=== PATIENT | male | born 1965 | race Caucasian/White ===

== ENCOUNTER 2019-12-14 07:51 | Day surgery (SDC) | payer OTHER ==
[2019-12-08 14:28] VITALS: BMI 24.2
--- OUTSIDE RECORDS SUMMARY | 2019-12-14 07:55 | XMS ---
:1965 Author Organization [facility] Care Team Providers Name Role Phone LOGAN LOPEZ Unavailable Unavailable Re-disclosure Warning The records that you are about to access may contain information from federally- assisted alcohol or drug abuse programs. If such information is present, then the following federally mandated warning applies: This information has been disclosed to you from records protected by federal confidentiality rules (42 CFR part 2). The federal rules prohibit you from making any further disclosure of this information unless further disclosure is expressly permitted by the written consent of the person to whom it pertains or as otherwise permitted by 42 CFR part 2. A general authorization for the release of medical or other information is NOT sufficient for this purpose. The Federal rules restrict any use of the information to criminally investigate or prosecute any alcohol or drug abuse patient.The records that you are about to access may contain highly sensitive health information, the redisclosure of which is protected by Article 27-F of the [facility] Public Health law. If you continue you may haveaccess to information: Regarding HIV / AIDS; Provided by facilities licensed or operated by the [facility] Office of Mental Health; or Provided by the [facility] Office for People With Developmental Disabilities. If such information is present, then the following [facility] mandated warning applies: This information has been disclosed to you from confidential records which are protected by state law. State law prohibits you from making any further disclosure of this information without the specific written consent of the person to whom it pertains, or as otherwise permitted by law. Any unauthorized further disclosure in violation of state law may result in a fine or group home sentence or both. A general authorization for the release of medical or other information is NOT sufficient authorization for further disclosure. Encounters Encounter Providers Location Date Indications Data Source(s ) Inpatient Attender: 03/17/2018 ACUTE CHOLECYSTITIS [facility], 09:40:00 AM Health Care RICHARDTIRIYAdmitter: EST - Corporati on [facility], 03/19/2018 LOGAN 11:30:00 AM EST ACUTE CHOLECYSTITIS Medications Medication Brand Start Product Dose Route Administrative Pharmacy [facility] Indications Reaction Description Data Name Date Form Instructions Instructions Source(s) Acetaminoph 985260 complet [place] [facility]ste en [500 mg [address] [facility] Tablet]: 2 Health Tablet Oral Care EVERY 6 Corporatio HOURS PRN n Pain DOK 816305 complet [place] (Docusate [address] [facility] Sodium) Health [100 mg Care Capsule]: Corporatio 100 MG Oral n Q8H Oxycodone 104479 complet [facility] heste [5 mg [address] [facility] Tablet]: 5 Health MG Oral Care Q6HPRN PRN Corporati o SEV/WORST n PAIN Ibuprofen 588573 complet [facility] heste [600 mg [address] [facility] Tablet]: Health 600 MG Oral Care Q6HPRN PRN Corporati o MODERATE n PAIN Tamsulosin 049531 complet [place] [facility] [0.4 mg [address] [facility] Capsule Health SR]: 0.4 MG Care Oral Q10AM Corporati o n Senna Lax 194676 complet [facility] heste (Sennosides [address] [facility] ) [8.6 mg Health Tablet]: Care 8.6 MG Oral Corporat io Q12H n Insurance Providers Payer name Policy type / Policy ID Covered Covered green party's Policy Plan Coverage type green party ID relationship to Zazueta Information zazueta [employer]ET[employer] O [id number] Results ID Date Data Source [id number] 12/10/2019 08:28:00 AM EDT [facility] Name Value Range Interpretation Description Data Sup porting Code Source(s) Document(s ) SARS [facility] coronavirus 2 RNA This lab was ordered by [facility]AN [facility] and reported by [facility]. ID Date Data Source [id number] 03/19/2018 10:29:42 AM EST [facility] [place] [id number] Name Value Range Interpretation Description Data Sup porting Code Source(s) Document(s ) Operative Operative <td> 03/18/2018 [place] Report Report </td><td> [facility] NAME: Operative Report Health Care FAHAD, </td><td>
<br/ Corporatio estefanía ESCOTO MR#: >

[id number] Operative Report ADMIT DATE: 03/17/2018

SURGERY NAME: FAHAD, DATE: JEVON 03/17/2018
MR#: DISCHARGE [id number] DATE:
ADMIT SURGEON: DATE: 03/17/2018 B[place]AM
NUMBER: SURGERY DATE: [id number] 03/17/2018 SURGEON:
Shaji Patel, DISCHARGE DATE: M.D.
FAC ENGINEER: SURGEON: Roxann
ANNA Goode, NUMBER: [id number] MSeth, PGY-3.

PREOPERATIVE SURGEON: Shaji DIAGNOSIS: Faizan Patel Acute

cholecystiti FAC ENGINEER: quin Goode, POSTOPERATIV Faizan, PGY-3. E DIAGNOSIS:

Acute PREOPERATIVE cholecystiti DIAGNOSIS: Acute s. cholecystitis. OPERATION:

Laparoscopic POSTOPERATIVE cholecystect DIAGNOSIS: Acute ludwig. cholecystitis. ANESTHESIA

USED: OPERATION: General Laparoscopic endotracheal cholecystectomy. . FLUIDS: 900

mL ANESTHESIA USED: crystalloid. General OUTPUT: endotracheal. Not

applicable. FLUIDS: 900 mL crystalloid. COMPLICATION

S: None. OUTPUT: Not ESTIMATED applicable. BLOOD LOSS:

30 mL. COMPLICATIONS: COUNTS: None. Instruments

and sponge ESTIMATED BLOOD correct. LOSS: 30 mL. INDICATIONS

: The COUNTS: patient is a Instruments and 52-year-old sponge correct. male with no

significant INDICATIONS: past The patient is a medical 52-year-old male history, who with no presented to significant past [place]
Medical medical history, Center with who presented to clinical [facility] , lab work with clinical and imaging
all presentation, lab consistent work and imaging with acute all consistent cholecystiti with acute s. All
risks, cholecystitis. benefits and All risks, options were benefits and explained to options were the explained to the patient,
risks patient, risks including including bleeding, bleeding, infection infection and and damage damage to to surrounding surrounding
structures. structures. The The patient patient expressed expressed understanding and understandin consented to move g and
consented to forward with move surgical forward with intervention. surgical

intervention FINDINGS: . Thickened inflamed FINDINGS: gallbladder wall. Thickened Critical view inflamed obtained. gallbladder

wall. DESCRIPTION OF Critical PROCEDURE: The view patient was obtained. brought into the operating room DESCRIPTION
OF and placed supine PROCEDURE: on the OR table. The patient Bilateral lower was brought extremity into the sequential operating
room and compression placed devices were supine on placed, arms were the OR extended out at table. the patient?s Bilateral
lower sides and all extremity pressure points sequential were padded. compression General anesthesia devices were was induced placed, arms
were without extended out complication and at the pre-op antibiotics patient?s of Cefoxitin were sides and given. A all pressure
points were time-out was padded. completed General verifying correct anesthesia patient, was induced procedure, site without and complication
and pre-op positioning prior antibiotics to beginning the of Cefoxitin procedure. The were given. abdomen was A time-out prepped was
with completed Chloraprep and verifying draped in the correct usual sterile patient, fashion. An procedure, infraumbilical site and
positioning vertical incision prior to was made below the beginning umbilicus. The the incision was procedure. deepened The abdomen
through was prepped the subcutaneous with tissue with Chloraprep combination and draped electrocautery and in the usual blunt sterile
fashion. An dissection. The infraumbilic fascia was al elevated by vertical grasping the incision was umbilical stalk made below with the
umbilicus. penetrating towel The incision clamp and fascia was deepened was incised. The through peritoneum was the
subcutaneous elevated and tissue with incised. Entry combination into the electrocaute peritoneum was ry and blunt confirmed visually and dissection.
no bowel The fascia was noted in the was elevated vicinity of the by grasping incision. A the sutures of 0-0 umbilical
stalk with Vicryl was placed penetrating in U-stitch towel clamp fashion and the and fascia Mendoza cannula was incised. inserted The
under peritoneum direct vision. The was sutures were elevated and anchored around incised. the cannula. The Entry into
the abdomen was peritoneum insufflated with was carbon dioxide to confirmed a pressure of visually and 12?15 mmHg. no bowel
The was noted in patient tolerated the vicinity insufflation well. of the A 10 mm trocar was incision. A then inserted. sutures of
0-0 Vicryl The laparoscope was placed was inserted and in U-stitch the abdomen fashion and inspected. No the Mendoza injuries from cannula
inserted initial trocar under direct placement were vision. The noted. Additional sutures were trocars were then anchored inserted around the
in the cannula. The following abdomen locations: a 5mm was trocar in the insufflated right epigastrium with carbon and two dioxide to a
5-mm pressure of trocars along the 12?15 mmHg. right costal The patient margin. The tolerated abdomen was insufflation inspected and well. A 10
no mm trocar abnormalities were was then found. The table inserted. was placed in the The reverse laparoscope
was inserted Trendelenburg and the position with the abdomen right side up. inspected. Peritoneal No injuries adhesions to the from
initial gallbladder were trocar appreciated placement surrounding the were noted. infundibulum. The Additional dome of the trocars were
then gallbladder was inserted grasped with an in the atraumatic grasper following passed through the locations: a
5mm trocar lateral port and in the right retracted over the epigastrium dome of the liver. and two The infundibulum 5-mm trocars
along the was also grasped right costal with an atraumatic margin. The grasper through abdomen was the midclavicular inspected port and no
and abnormalitie retracted toward s were the right lower found. The quadrant. Blunt table was dissection was placed in used the reverse
to thin Trendelenbu out the peritoneal rg position attachments and with the carefully taken right side them down up.
Peritoneal exposing the adhesions to critical view. The the wall of the gallbladder gallbladder with were thick and appreciated
surrounding inflamed proving the to be infundibulum hypervascular with . The dome dissection. Oozing of the from the gallbladder
was grasped dissection borders with an was controlled as atraumatic dissection grasper progressed. The passed cystic through the
duct and lateral cystic artery port and identified and retracted circumferentially over the dissected using dome of the
liver. The blunt dissection. infundibulum The cystic duct was also and cystic artery grasped with were then doubly an
atraumatic clipped with two grasper clips proximal and through the one distal and midclavicula then divided close r port and to retracted
the toward the gallbladder. The right lower gallbladder was quadrant. then dissected Blunt from its dissection peritoneal was used
to thin out attachments by the electrocautery. peritoneal There was minor attachments spillage of bile and no stones carefully
were taken them spilled. down Hemostasis was exposing the checked and the critical gallbladder and view. The contained wall of the
stones gallbladder were removed using with thick an endoscopic and retrieval bag inflamed placed through the proving to
be umbilical port hypervascula with camera moved r with to the subxiphoid dissection. port. The Oozing from gallbladder the
was dissection passed off the borders was table as a controlled specimen. The as gallbladder fossa dissection was progressed.
The cystic copiously duct and irrigated with cystic saline and artery hemostasis was identified obtained. There and was no circumferent
evidence ially of bleeding from dissected the gallbladder using fossa or cystic blunt artery or dissection.
The cystic leakage of the duct and bile from the cystic cystic duct stump. artery were The trocars were then doubly removed clipped
under with two direct vision and clips the abdomen was proximal and allowed to one distal collapse. The and then fascia of divided
the close to umbilical trocar the site was closed gallbladder. with the U-stitch The vicryl previously gallbladder
was then placed. The skin dissected was closed with from its subcuticular peritoneal sutures of 4-0 attachments monocryl and by
electrocaute dermabond was used ry. There as dressing. The was minor patient tolerated spillage of the procedure well bile no
stones and was taken to were the postanesthesia spilled. care unit in Hemostasis stable condition. was checked and the
gallbladder Alana was and present and contained scrubbed for the stones were entirety of the removed case. using an

<br endoscopic />

retrieval DICT: Roxann Goode M.D. through the
umbilical 10 11 port with PM camera moved
to the subxiphoid 04:30:20/IN port. The
gallbladder was passed

off the table as a specimen. === END OF The DOCUMENT / CHANGE gallbladder LOG FOLLOWS fossa was copiously irrigated

</td> with saline and hemostasis was obtained. There was no evidence of bleeding from the gallbladder fossa or cystic artery or leakage of the bile from the cystic duct stump. The trocars were removed under direct vision and the abdomen was allowed to collapse. The fascia of the umbilical trocar site was closed with the U-stitch vicryl previously placed. The skin was closed with subcuticular sutures of 4-0 monocryl and dermabond was used as dressing. The patient tolerated the procedure well and was taken to the postanesthes ia care unit in stable condition. Dr. Lopez was present and scrubbed for the entirety of the case. DICT: Roxann Goode M.D. 10 11 PM DT: 04:30:20/IN ========= END OF DOCUMENT / CHANGE LOG FOLLOWS ===== Operative Operative <td> 03/18/2018 [place] Report Report </td><td> [facility] NAME: Operative Report Health Care FAHAD, </td><td>
<br/ Corporatio n JEVON MR#: >

[id number] Operative Report ADMIT DATE: 03/17/2018

SURGERY NAME: FAHAD, DATE: 03/17/2018
MR#: DISCHARGE [id number] DATE:
ADMIT SURGEON: DATE: 03/17/2018 ANNA
NUMBER: SURGERY DATE: [id number] 03/17/2018 SURGEON:
Shaji Patel, DISCHARGE DATE: M.D.
FAC ENGINEER: SURGEON: Roxann
ANNA Goode, NUMBER: [id number] Faiazn, PGY-3.

PREOPERATIVE SURGEON: Shaji DIAGNOSIS: Faizan Patel Acute

cholecystiti FAC ENGINEER: quin Goode, POSTOPERATIV Faizan, PGY-3. E DIAGNOSIS:

Acute PREOPERATIVE cholecystiti DIAGNOSIS: Acute s. cholecystitis. OPERATION:

Laparoscopic POSTOPERATIVE cholecystect DIAGNOSIS: Acute ludwig. cholecystitis. ANESTHESIA

USED: OPERATION: General Laparoscopic endotracheal cholecystectomy. . FLUIDS: 900

mL ANESTHESIA USED: crystalloid. General OUTPUT: endotracheal. Not

applicable. FLUIDS: 900 mL crystalloid. COMPLICATION

S: None. OUTPUT: Not ESTIMATED applicable. BLOOD LOSS:

30 mL. COMPLICATIONS: COUNTS: None. Instruments

and sponge ESTIMATED BLOOD correct. LOSS: 30 mL. INDICATIONS

: The COUNTS: patient is a Instruments and 52-year-old sponge correct. male with no

significant INDICATIONS: past The patient is a medical 52-year-old male history, who with no presented to significant past [place]
Medical medical history, Center with who presented to clinical [facility] , lab work with clinical and imaging
all presentation, lab consistent work and imaging with acute all consistent cholecystiti with acute s. All
risks, cholecystitis. benefits and All risks, options were benefits and explained to options were the explained to the patient,
risks patient, risks including including bleeding, bleeding, infection infection and and damage damage to to surrounding surrounding
structures. structures. The The patient patient expressed expressed understanding and understandin consented to move g and
consented to forward with move surgical forward with intervention. surgical

intervention FINDINGS: . Thickened inflamed FINDINGS: gallbladder wall. Thickened Critical view inflamed obtained. gallbladder

wall. DESCRIPTION OF Critical PROCEDURE: The view patient was obtained. brought into the operating room DESCRIPTION
OF and placed supine PROCEDURE: on the OR table. The patient Bilateral lower was brought extremity into the sequential operating
room and compression placed devices were supine on placed, arms were the OR extended out at table. the patient?s Bilateral
lower sides and all extremity pressure points sequential were padded. compression General anesthesia devices were was induced placed, arms
were without extended out complication and at the pre-op antibiotics patient?s of Cefoxitin were sides and given. A all pressure
points were time-out was padded. completed General verifying correct anesthesia patient, was induced procedure, site without and complication
and pre-op positioning prior antibiotics to beginning the of Cefoxitin procedure. The were given. abdomen was A time-out prepped was
with completed Chloraprep and verifying draped in the correct usual sterile patient, fashion. An procedure, infraumbilical site and
positioning vertical incision prior to was made below the beginning umbilicus. The the incision was procedure. deepened The abdomen
through was prepped the subcutaneous with tissue with Chloraprep combination and draped electrocautery and in the usual blunt sterile
fashion. An dissection. The infraumbilic fascia was al elevated by vertical grasping the incision was umbilical stalk made below with the
umbilicus. penetrating towel The incision clamp and fascia was deepened was incised. The through peritoneum was the
subcutaneous elevated and tissue with incised. Entry combination into the electrocaute peritoneum was ry and blunt confirmed visually and dissection.
no bowel The fascia was noted in the was elevated vicinity of the by grasping incision. A the sutures of 0-0 umbilical
stalk with Vicryl was placed penetrating in U-stitch towel clamp fashion and the and fascia Mendoza cannula was incised. inserted The
under peritoneum direct vision. The was sutures were elevated and anchored around incised. the cannula. The Entry into
the abdomen was peritoneum insufflated with was carbon dioxide to confirmed a pressure of visually and 12?15 mmHg. no bowel
The was noted in patient tolerated the vicinity insufflation well. of the A 10 mm trocar was incision. A then inserted. sutures of
0-0 Vicryl The laparoscope was placed was inserted and in U-stitch the abdomen fashion and inspected. No the Mendoza injuries from cannula
inserted initial trocar under direct placement were vision. The noted. Additional sutures were trocars were then anchored inserted around the
in the cannula. The following abdomen locations: a 5mm was trocar in the insufflated right epigastrium with carbon and two dioxide to a
5-mm pressure of trocars along the 12?15 mmHg. right costal The patient margin. The tolerated abdomen was insufflation inspected and well. A 10
no mm trocar abnormalities were was then found. The table inserted. was placed in the The reverse laparoscope
was inserted Trendelenburg and the position with the abdomen right side up. inspected. Peritoneal No injuries adhesions to the from
initial gallbladder were trocar appreciated placement surrounding the were noted. infundibulum. The Additional dome of the trocars were
then gallbladder was inserted grasped with an in the atraumatic grasper following passed through the locations: a
5mm trocar lateral port and in the right retracted over the epigastrium dome of the liver. and two The infundibulum 5-mm trocars
along the was also grasped right costal with an atraumatic margin. The grasper through abdomen was the midclavicular inspected port and no
and abnormalitie retracted toward s were the right lower found. The quadrant. Blunt table was dissection was placed in used the reverse
to thin Trendelenbu out the peritoneal rg position attachments and with the carefully taken right side them down up.
Peritoneal exposing the adhesions to critical view. The the wall of the gallbladder gallbladder with were thick and appreciated
surrounding inflamed proving the to be infundibulum hypervascular with . The dome dissection. Oozing of the from the gallbladder
was grasped dissection borders with an was controlled as atraumatic dissection grasper progressed. The passed cystic through the
duct and lateral cystic artery port and identified and retracted circumferentially over the dissected using dome of the
liver. The blunt dissection. infundibulum The cystic duct was also and cystic artery grasped with were then doubly an
atraumatic clipped with two grasper clips proximal and through the one distal and midclavicula then divided close r port and to retracted
the toward the gallbladder. The right lower gallbladder was quadrant. then dissected Blunt from its dissection peritoneal was used
to thin out attachments by the electrocautery. peritoneal There was minor attachments spillage of bile and no stones carefully
were taken them spilled. down Hemostasis was exposing the checked and the critical gallbladder and view. The contained wall of the
stones gallbladder were removed using with thick an endoscopic and retrieval bag inflamed placed through the proving to
be umbilical port hypervascula with camera moved r with to the subxiphoid dissection. port. The Oozing from gallbladder the
was dissection passed off the borders was table as a controlled specimen. The as gallbladder fossa dissection was progressed.
The cystic copiously duct and irrigated with cystic saline and artery hemostasis was identified obtained. There and was no circumferent
evidence ially of bleeding from dissected the gallbladder using fossa or cystic blunt artery or dissection.
The cystic leakage of the duct and bile from the cystic cystic duct stump. artery were The trocars were then doubly removed clipped
under with two direct vision and clips the abdomen was proximal and allowed to one distal collapse. The and then fascia of divided
the close to umbilical trocar the site was closed gallbladder. with the U-stitch The vicryl previously gallbladder
was then placed. The skin dissected was closed with from its subcuticular peritoneal sutures of 4-0 attachments monocryl and by
electrocaute dermabond was used ry. There as dressing. The was minor patient tolerated spillage of the procedure well bile no
stones and was taken to were the postanesthesia spilled. care unit in Hemostasis stable condition. was checked DrPaula and the
gallbladder Alana was and present and contained scrubbed for the stones were entirety of the removed case. using an

<br endoscopic />

retrieval DICT: Roxann Goode M.D. through the
umbilical 10 11 port with PM camera moved
to the subxiphoid 04:30:20/IN port. The
gallbladder was passed

off the table as a specimen. === END OF The DOCUMENT / CHANGE gallbladder LOG FOLLOWS fossa was copiously irrigated

</td> with saline and hemostasis was obtained. There was no evidence of bleeding from the gallbladder fossa or cystic artery or leakage of the bile from the cystic duct stump. The trocars were removed under direct vision and the abdomen was allowed to collapse. The fascia of the umbilical trocar site was closed with the U-stitch vicryl previously placed. The skin was closed with subcuticular sutures of 4-0 monocryl and dermabond was used as dressing. The patient tolerated the procedure well and was taken to the postanesthes ia care unit in stable condition. Dr. Lopez was present and scrubbed for the entirety of the case. DICT: Roxann Goode M.D. 10 11 PM DT: 04:30:20/IN ========= END OF DOCUMENT / CHANGE LOG FOLLOWS ===== ID Date Data Source [id number] 03/18/2018 09:19:38 AM EST [facility] [place] [id number] Corporation Name Value Range Interpretation Description Data Source(s ) Supporting Code Document(s ) Antibody NEG <td> [place] Screen 03/17/2018 [facility] 04:06</td><td> Care [employer]ody [employer] Screen </td><td> NEG
</td> ABO-Rh Type O NEG <td> [place] 03/17/2018 [facility] 04:06</td><td> Care ABO-Rh Type [employer] </td><td> O NEG
</td> Specimen 03/20/19 <td> [place] expiration 19 23:59 03/17/2018 [facility] date of Blood 04:06</td><td> Care [employer]imen [employer] Expiration Date </td><td> 03/20/2018 23:59
</td> Specimen 03/20/19 <td> [place] expiration 19 23:59 03/17/2018 [facility] date of Blood 04:06</td><td> Care [employer] Expiration Date </td><td> 03/20/2018 23:59
</td> Antibody NEG <td> [place] Screen 03/17/2018 [facility] 04:06</td><td> Care [employer] Screen </td><td> NEG
</td> ABO-Rh Type O NEG <td> [place] 03/17/2018 [facility] 04:06</td><td> Care ABO-Rh [employer] </td><td> O NEG
</td> Specimen 03/20/19 <td> [place] expiration 19 23:59 03/17/2018 [facility] date of Blood 04:06</td><td> Care [employer] Expiration Date </td><td> 03/20/2018 23:59
</td> Antibody NEG <td> [place] Screen 03/17/2018 [facility] 04:06</td><td> Care [employer] Screen </td><td> NEG
</td> ABO-Rh Type O NEG <td> [place] 03/17/2018 [facility] 04:06</td><td> Care ABO-Rh [employer] </td><td> O NEG
</td> ID Date Data Source [id number] 03/18/2018 09:19:38 AM EST [facility] [place] [id number] Corporation Name Value Range Interpretation Description Data Sup porting Code Source(s) Document(s ) Abdomen (PACSIMAGE <td> 03/17/2018 [place] and 03:42</td><td> [facility] Pelvis CT ) Final Abdomen/Pelvis Health Care W Result With Contrast-CT Corporation contrast Name: </td><td><JEVON Galeas IV styleCode="Itali Sex: M : cs">(PACSIMAGE 1965 Location: M Admitting )</paragraph><br Physician: />
Final EMERGENCY Result SERVICE

Requesting Name: Physician FAHAD: JEVON NATHAN
MRN: Exam: CT [id number] Sex: M ABDOMEN/PELVIS
C+ 03/17/2018 : 06:08 1965 CLINICAL Location: M INDICATION:
Abdominal pain Admitting TECHNIQUE: Physician: Contrast EMERGENCY enhanced CT of SERVICE the abdomen and
pelvis was Requesting performed. Physician: FRANCISCO 100ml of PLANSKY Omnipaque 350

was utilized Exam: CT for intravenous ABDOMEN/PELVIS contrast. C+ 03/17/2018 Oral contrast 06:08 was

administered. CLINICAL Up-to-date INDICATION: CT equipment Abdominal pain using Automatic Exposure

Control, dose TECHNIQUE: modulation, and Contrast iterative enhanced CT of reconstruction the abdomen and dose reduction pelvis was software was
employed. The performed. 100ml total study DLP of Omnipaque 350 is was utilized for approximately intravenous 416 mGy-cm.
COMPARISON: contrast. Oral No prior contrast was examination is administered. available for comparison..

FINDINGS: Up-to-date CT LOWER THORAX: equipment using Visualized Automatic portions of the Exposure heart are Control, dose normal in
size. There is modulation, and a pleural-based iterative nodule 4 mm in reconstruction the right dose reduction middle lobe. software LIVER: The
was liver is normal employed. in size and
contour. The The total study portal veins DLP is are patent. approximately BILIARY: The 416 mGy-cm. gallbladder wall appears

thickened. COMPARISON: There is no No prior intrahepatic examination is biliary ductal available for dilatation or comparison.. common bile duct

dilatation. FINDINGS: There is a 4 mm

radiopaque LOWER THORAX: gallstone in Visualized the cystic portions of the duct. Findings heart are normal are highly in suggests acute
size. cholecystitis. There is a SPLEEN: The pleural-based spleen is nodule 4 mm in normal is size. the right middle PANCREAS:
The pancreas is lobe. normal in size.

There is no LIVER: The pancreatic liver is normal ductal in size and dilatation. contour. The ADRENAL portal veins GLANDS: The
adrenal glands are patent. are normal in

size. BILIARY: The KIDNEYS: The gallbladder wall kidneys are appears normal in size thickened. There and the is no nephrograms are
symmetric. intrahepatic There is no biliary ductal hydronephrosis. dilatation or LYMPH common bile duct NODES: There is dilatation. no abdominal or
pelvic There is a 4 mm adenopathy. radiopaque VASCULAR: gallstone in the There is no cystic duct. abdominal Findings aortic
are aneurysm. highly suggests BOWEL: The acute small and large cholecystitis. bowel are normal caliber.

Enteric SPLEEN: The contrast spleen is normal material passes is size. to the level of

the distal PANCREAS: The small bowel. pancreas is There is no normal in size. evidence of There is no obstruction. pancreatic Normal caliber
appendix ductal within the dilatation. right lower

quadrant ADRENAL without GLANDS: The evidence of adrenal glands acute are normal in appendicitis.. size. PERITONEUM

and PELVIS: KIDNEYS: The There is no kidneys are free air or normal in size fluid. Prostate and the is prominent, nephrograms are measuring 5.8
cm x 4.1 cm symmetric. BONES AND SOFT There is no TISSUES: hydronephrosis. Osseous structures and

soft tissues LYMPH NODES: are There is no unremarkable. abdominal or pelvic IMPRESSION: adenopathy. 1. Gallbladder

wall thickening VASCULAR: with pericystic There is no fluid in the abdominal aortic presence of a aneurysm. 4mm radiopaque

gallstone in BOWEL: The the cystic small and large duct; findings bowel are normal suspicious caliber. Enteric for acute
cholecystitis contrast with material passes cholelithiasis. to the level of Correlate with the distal small subsequent bowel. abdominal
There ultrasound. is no evidence 2. Right middle of obstruction. lobe 4 mm Normal caliber pleural-based appendix nodule.
Dedicated CT within the right thorax study lower quadrant obtained for without evidence further of acute evaluation as appendicitis.. clinically warranted..

3. Prominent PERITONEUM and prostate. PELVIS: There is Correlate with no free air or PSA level. fluid. Prostate Resident
Radiologist: is prominent, Christiano Griffiths MD measuring 5.8 cm Resident x 4.1 cm Radiologist

Attending BONES AND SOFT Radiologist: TISSUES: Osseous [place] structures and Finalizing soft tissues are Radiologist:
Parish Solomon MD unremarkable. Transcribed Date:

03/17/2018 IMPRESSION: 11:36
Finalized Date: 1. Gallbladder 03/17/2018 wall thickening 11:37 with pericystic fluid in the presence
of a 4mm radiopaque gallstone in the cystic duct; findings suspicious
for acute cholecystitis with cholelithiasis. Correlate with subsequent
abdominal ultrasound.
2. Right middle lobe 4 mm pleural-based nodule. Dedicated CT
thorax study obtained for further evaluation as clinically warranted..
3. Prominent prostate. Correlate with PSA level.

< br/> Resident Radiologist: Christiano Griffiths MD Resident Radiologist
Attending Radiologist: Parish Solomon MD
Finalizing Radiologist: Parish Solomon MD
Transcribed Date: 03/17/2018 11:36
Finalized Date: 03/17/2018 11:37

</td> Abdomen (PACSIMAGE <td> 03/17/2018 [facility] 06:51</td><td> [facility] ) Final Abdomen Limited Health Care Result [employer] [facility] Name: </td><td><JEVON Yates styleCode="Itali Sex: M : cs">(PACSIMAGE 1965 Location: M Admitting )</paragraph><br Physician: />
Final EMERGENCY Result SERVICE

Requesting Name: FAHAD Physician: JEVON NATHAN
MRN: Exam: US [id number] Sex: M ABDOMEN LIMITED
03/17/2018 : 07:20 1965 CLINICAL Location: M HISTORY
PROVIDED : Admitting Right upper Physician: quadrant pain EMERGENCY COMPARISON: SERVICE CT scan
03/17/2018 Requesting FINDINGS: Physician: FRANCISCO There is a JAC heterogeneous

liver with Exam: US ABDOMEN overall LIMITED increased 03/17/2018 07:20 echogenicity as compared to

the right CLINICAL kidney HISTORY PROVIDED parenchyma and : Right upper decreased quadrant pain penetration consistent with

hepatosteatosis COMPARISON: CT . This scan 03/17/2018 condition limits

ultrasound FINDINGS: evaluation for

underlying There is a parenchymal heterogeneous abnormalities liver with and/ or overall masses.. increased Gallbladder is echogenicity underdistended
with sludge and as compared to small bile the right kidney stones/crystals parenchyma and . At least decreased one at level of penetration cystic duct.
Gallbladder consistent with wall is hepatosteatosis. thickened may This condition be secondary to limits underdistention ultrasound and or edema..
It measures evaluation for approximately underlying 0.36 cm.No parenchymal sonographic abnormalities Rojas's sign and/ or masses.. according to bottle house quality control technician .

No intrahepatic Gallbladder is biliary ductal underdistended dilatation. The with sludge and pancreas small bile completely stones/crystals. obscured by air
and antrum and At least one duodenum so at level of distal common cystic duct. bile duct not Gallbladder wall visualized. is thickened Common bile
duct upper of may be secondary destini hepatis to upper limits underdistention normal and 0.56 and or edema.. cm. Color It measures Doppler
supplementation approximately shows a patent 0.36 cm.No main portal sonographic vein with Rojas's sign normal according direction of
to flow.. No bottle house quality control technician right-sided
. pleural No intrahepatic effusion or biliary ductal right upper dilatation. The quadrant pancreas ascites is completely demonstrated.
IMPRESSION: obscured by air Hepatic and antrum and steatosis duodenum so Sludge and distal common small floating bile stones/crystals
duct in gallbladder not visualized. wall Common bile duct thickening with upper of destini stone at level hepatis of cystic duct
seen on CT upper limits scan. normal and 0.56 FINDINGS cm. suspicious for

cholecystitis Color Doppler although no supplementation reported shows a patent Rojas's sign main portal vein correlate with
any pain relief with normal given . direction of Resident flow.. Radiologist:

Attending No right-sided Radiologist: pleural effusion Roberta Kirby or right upper Finalizing quadrant ascites Radiologist:
Roberta Kirby is MD demonstrated. Transcribed Date:

03/17/2018 IMPRESSION: 08:00

Finalized Date: Hepatic 03/17/2018 steatosis 08:08
Sludge and small floating stones/crystals in gallbladder wall
thickening with stone at level of cystic duct seen on CT scan.
FINDINGS suspicious for cholecystitis although no reported Rojas's
sign correlate with any pain relief given .

< br/> Resident Radiologist:
Attending Radiologist: Roberta Kirby MD
Finalizing Radiologist: Roberta Kirby MD
Transcribed Date: 03/17/2018 08:00
Finalized Date: 03/17/2018 08:08

</td> Abdomen (PACSIMAGE <td> 03/17/2018 [place] and 03:42</td><td> [facility] Pelvis CT ) Final Abdomen/Pelvis Health Care W Result With Contrast-[employer] contrast Name: </td><td><JEVON Galeas IV styleCode="Itali Sex: M : cs">(PACSIMAGE 1965 Location: M Admitting )</paragraph><br Physician: />
Final EMERGENCY Result SERVICE

Requesting Name: Physician FAHAD: JEVON NATHAN
MRN: Exam: CT [id number] Sex: M ABDOMEN/PELVIS
C+ 03/17/2018 : 06:08 1965 CLINICAL Location: M INDICATION:
Abdominal pain Admitting TECHNIQUE: Physician: Contrast EMERGENCY enhanced CT of SERVICE the abdomen and
pelvis was Requesting performed. Physician: FRANCISCO 100ml of JAC Omnipaque 350

was utilized Exam: CT for intravenous ABDOMEN/PELVIS contrast. C+ 03/17/2018 Oral contrast 06:08 was

administered. CLINICAL Up-to-date INDICATION: CT equipment Abdominal pain using Automatic Exposure

Control, dose TECHNIQUE: modulation, and Contrast iterative enhanced CT of reconstruction the abdomen and dose reduction pelvis was software was
employed. The performed. 100ml total study DLP of Omnipaque 350 is was utilized for approximately intravenous 416 mGy-cm.
COMPARISON: contrast. Oral No prior contrast was examination is administered. available for comparison..

FINDINGS: Up-to-date CT LOWER THORAX: equipment using Visualized Automatic portions of the Exposure heart are Control, dose normal in
size. There is modulation, and a pleural-based iterative nodule 4 mm in reconstruction the right dose reduction middle lobe. software LIVER: The
was liver is normal employed. in size and
contour. The The total study portal veins DLP is are patent. approximately BILIARY: The 416 mGy-cm. gallbladder wall appears

thickened. COMPARISON: There is no No prior intrahepatic examination is biliary ductal available for dilatation or comparison.. common bile duct

dilatation. FINDINGS: There is a 4 mm

radiopaque LOWER THORAX: gallstone in Visualized the cystic portions of the duct. Findings heart are normal are highly in suggests acute
size. cholecystitis. There is a SPLEEN: The pleural-based spleen is nodule 4 mm in normal is size. the right middle PANCREAS:
The pancreas is lobe. normal in size.

There is no LIVER: The pancreatic liver is normal ductal in size and dilatation. contour. The ADRENAL portal veins GLANDS: The
adrenal glands are patent. are normal in

size. BILIARY: The KIDNEYS: The gallbladder wall kidneys are appears normal in size thickened. There and the is no nephrograms are
symmetric. intrahepatic There is no biliary ductal hydronephrosis. dilatation or LYMPH common bile duct NODES: There is dilatation. no abdominal or
pelvic There is a 4 mm adenopathy. radiopaque VASCULAR: gallstone in the There is no cystic duct. abdominal Findings aortic
are aneurysm. highly suggests BOWEL: The acute small and large cholecystitis. bowel are normal caliber.

Enteric SPLEEN: The contrast spleen is normal material passes is size. to the level of

the distal PANCREAS: The small bowel. pancreas is There is no normal in size. evidence of There is no obstruction. pancreatic Normal caliber
appendix ductal within the dilatation. right lower

quadrant ADRENAL without GLANDS: The evidence of adrenal glands acute are normal in appendicitis.. size. PERITONEUM

and PELVIS: KIDNEYS: The There is no kidneys are free air or normal in size fluid. Prostate and the is prominent, nephrograms are measuring 5.8
cm x 4.1 cm symmetric. BONES AND SOFT There is no TISSUES: hydronephrosis. Osseous structures and

soft tissues LYMPH NODES: are There is no unremarkable. abdominal or pelvic IMPRESSION: adenopathy. 1. Gallbladder

wall thickening VASCULAR: with pericystic There is no fluid in the abdominal aortic presence of a aneurysm. 4mm radiopaque

gallstone in BOWEL: The the cystic small and large duct; findings bowel are normal suspicious caliber. Enteric for acute
cholecystitis contrast with material passes cholelithiasis. to the level of Correlate with the distal small subsequent bowel. abdominal
There ultrasound. is no evidence 2. Right middle of obstruction. lobe 4 mm Normal caliber pleural-based appendix nodule.
Dedicated CT within the right thorax study lower quadrant obtained for without evidence further of acute evaluation as appendicitis.. clinically warranted..

3. Prominent PERITONEUM and prostate. PELVIS: There is Correlate with no free air or PSA level. fluid. Prostate Resident
Radiologist: is prominent, Christiano Griffiths MD measuring 5.8 cm Resident x 4.1 cm Radiologist

Attending BONES AND SOFT Radiologist: TISSUES: Osseous [place] Finalizing soft tissues are Radiologist:
Parish Solomon MD unremarkable. Transcribed Date:

03/17/2018 IMPRESSION: 11:36
Finalized Date: 1. Gallbladder 03/17/2018 wall thickening 11:37 with pericystic fluid in the presence
of a 4mm radiopaque gallstone in the cystic duct; findings suspicious
for acute cholecystitis with cholelithiasis. Correlate with subsequent
abdominal ultrasound.
2. Right middle lobe 4 mm pleural-based nodule. Dedicated CT
thorax study obtained for further evaluation as clinically warranted..
3. Prominent prostate. Correlate with PSA level.

< br/> Resident Radiologist: Christiano Griffiths MD Resident Radiologist
Attending Radiologist: Parish Solomon MD
Finalizing Radiologist: Parish Solomon MD
Transcribed Date: 03/17/2018 11:36
Finalized Date: 03/17/2018 11:37

</td> Abdomen (PACSIMAGE <td> 03/17/2018 [facility] 06:51</td><td> [facility] ) Final Abdomen Limited Health Care Result Corporation Name: </td><td><JEVON Yates styleCode="Itali Sex: M : cs">(PACSIMAGE 1965 Location: M Admitting )</paragraph><br Physician: />
Final EMERGENCY Result SERVICE

Requesting Name: FAHAD Physician: JEVON NATHAN
MRN: Exam: US [id number] Sex: M ABDOMEN LIMITED
03/17/2018 : 07:20 1965 CLINICAL Location: M HISTORY
PROVIDED : Admitting Right upper Physician: quadrant pain EMERGENCY COMPARISON: SERVICE CT scan
03/17/2018 Requesting FINDINGS: Physician: FRANCISCO There is a JAC heterogeneous

liver with Exam: US ABDOMEN overall LIMITED increased 03/17/2018 07:20 echogenicity as compared to

the right CLINICAL kidney HISTORY PROVIDED parenchyma and : Right upper decreased quadrant pain penetration consistent with

hepatosteatosis COMPARISON: CT . This scan 03/17/2018 condition limits

ultrasound FINDINGS: evaluation for

underlying There is a parenchymal heterogeneous abnormalities liver with and/ or overall masses.. increased Gallbladder is echogenicity underdistended
with sludge and as compared to small bile the right kidney stones/crystals parenchyma and . At least decreased one at level of penetration cystic duct.
Gallbladder consistent with wall is hepatosteatosis. thickened may This condition be secondary to limits underdistention ultrasound and or edema..
It measures evaluation for approximately underlying 0.36 cm.No parenchymal sonographic abnormalities Rojas's sign and/ or masses.. according to bottle house quality control technician .

No intrahepatic Gallbladder is biliary ductal underdistended dilatation. The with sludge and pancreas small bile completely stones/crystals. obscured by air
and antrum and At least one duodenum so at level of distal common cystic duct. bile duct not Gallbladder wall visualized. is thickened Common bile
duct upper of may be secondary destini hepatis to upper limits underdistention normal and 0.56 and or edema.. cm. Color It measures Doppler
supplementation approximately shows a patent 0.36 cm.No main portal sonographic vein with Rojas's sign normal according direction of
to flow.. No bottle house quality control technician right-sided
. pleural No intrahepatic effusion or biliary ductal right upper dilatation. The quadrant pancreas ascites is completely demonstrated.
IMPRESSION: obscured by air Hepatic and antrum and steatosis duodenum so Sludge and distal common small floating bile stones/crystals
duct in gallbladder not visualized. wall Common bile duct thickening with upper of destini stone at level hepatis of cystic duct
seen on CT upper limits scan. normal and 0.56 FINDINGS cm. suspicious for

cholecystitis Color Doppler although no supplementation reported shows a patent Rojas's sign main portal vein correlate with
any pain relief with normal given . direction of Resident flow.. Radiologist:

Attending No right-sided Radiologist: pleural effusion Roberta Kirby or right upper MD Finalizing quadrant ascites Radiologist:
Roberta Kirby is MD demonstrated. Transcribed Date:

03/17/2018 IMPRESSION: 08:00

Finalized Date: Hepatic 03/17/2018 steatosis 08:08
Sludge and small floating stones/crystals in gallbladder wall
thickening with stone at level of cystic duct seen on CT scan.
FINDINGS suspicious for cholecystitis although no reported Rojas's
sign correlate with any pain relief given .

< br/> Resident Radiologist:
Attending Radiologist: Roberta Kirby MD
Finalizing Radiologist: Roberta Kirby MD
Transcribed Date: 03/17/2018 08:00
Finalized Date: 03/17/2018 08:08

</td> Abdomen (PACSIMAGE <td> 03/17/2018 [place] and 03:42</td><td> [facility] Pelvis CT ) Final Abdomen/Pelvis Health Care W Result With Contrast-CT [employer] contrast Name: </td><td>JEVON Arceo IV styleCode="Itali Sex: M : cs">(PACSIMAGE 1965 Location: M Admitting )</paragraph><br Physician: />
Final EMERGENCY Result SERVICE

Requesting Name: Physician FAHAD: JEVON NATHAN
MRN: Exam: CT [id number] Sex: M ABDOMEN/PELVIS
C+ 03/17/2018 : 06:08 1965 CLINICAL Location: M INDICATION:
Abdominal pain Admitting TECHNIQUE: Physician: Contrast EMERGENCY enhanced CT of SERVICE the abdomen and
pelvis was Requesting performed. Physician: FRANCISCO 100ml of JAC Omnipaque 350

was utilized Exam: CT for intravenous ABDOMEN/PELVIS contrast. C+ 03/17/2018 Oral contrast 06:08 was

administered. CLINICAL Up-to-date INDICATION: CT equipment Abdominal pain using Automatic Exposure

Control, dose TECHNIQUE: modulation, and Contrast iterative enhanced CT of reconstruction the abdomen and dose reduction pelvis was software was
employed. The performed. 100ml total study DLP of Omnipaque 350 is was utilized for approximately intravenous 416 mGy-cm.
COMPARISON: contrast. Oral No prior contrast was examination is administered. available for comparison..

FINDINGS: Up-to-date CT LOWER THORAX: equipment using Visualized Automatic portions of the Exposure heart are Control, dose normal in
size. There is modulation, and a pleural-based iterative nodule 4 mm in reconstruction the right dose reduction middle lobe. software LIVER: The
was liver is normal employed. in size and
contour. The The total study portal veins DLP is are patent. approximately BILIARY: The 416 mGy-cm. gallbladder wall appears

thickened. COMPARISON: There is no No prior intrahepatic examination is biliary ductal available for dilatation or comparison.. common bile duct

dilatation. FINDINGS: There is a 4 mm

radiopaque LOWER THORAX: gallstone in Visualized the cystic portions of the duct. Findings heart are normal are highly in suggests acute
size. cholecystitis. There is a SPLEEN: The pleural-based spleen is nodule 4 mm in normal is size. the right middle PANCREAS:
The pancreas is lobe. normal in size.

There is no LIVER: The pancreatic liver is normal ductal in size and dilatation. contour. The ADRENAL portal veins GLANDS: The
adrenal glands are patent. are normal in

size. BILIARY: The KIDNEYS: The gallbladder wall kidneys are appears normal in size thickened. There and the is no nephrograms are
symmetric. intrahepatic There is no biliary ductal hydronephrosis. dilatation or LYMPH common bile duct NODES: There is dilatation. no abdominal or
pelvic There is a 4 mm adenopathy. radiopaque VASCULAR: gallstone in the There is no cystic duct. abdominal Findings aortic
are aneurysm. highly suggests BOWEL: The acute small and large cholecystitis. bowel are normal caliber.

Enteric SPLEEN: The contrast spleen is normal material passes is size. to the level of

the distal PANCREAS: The small bowel. pancreas is There is no normal in size. evidence of There is no obstruction. pancreatic Normal caliber
appendix ductal within the dilatation. right lower

quadrant ADRENAL without GLANDS: The evidence of adrenal glands acute are normal in appendicitis.. size. PERITONEUM

and PELVIS: KIDNEYS: The There is no kidneys are free air or normal in size fluid. Prostate and the is prominent, nephrograms are measuring 5.8
cm x 4.1 cm symmetric. BONES AND SOFT There is no TISSUES: hydronephrosis. Osseous structures and

soft tissues LYMPH NODES: are There is no unremarkable. abdominal or pelvic IMPRESSION: adenopathy. 1. Gallbladder

wall thickening VASCULAR: with pericystic There is no fluid in the abdominal aortic presence of a aneurysm. 4mm radiopaque

gallstone in BOWEL: The the cystic small and large duct; findings bowel are normal suspicious caliber. Enteric for acute
cholecystitis contrast with material passes cholelithiasis. to the level of Correlate with the distal small subsequent bowel. abdominal
There ultrasound. is no evidence 2. Right middle of obstruction. lobe 4 mm Normal caliber pleural-based appendix nodule.
Dedicated CT within the right thorax study lower quadrant obtained for without evidence further of acute evaluation as appendicitis.. clinically warranted..

3. Prominent PERITONEUM and prostate. PELVIS: There is Correlate with no free air or PSA level. fluid. Prostate Resident
Radiologist: is prominent, Christiano Griffiths MD measuring 5.8 cm Resident x 4.1 cm Radiologist

Attending BONES AND SOFT Radiologist: TISSUES: Osseous Parish Beaver Finalizing soft tissues are Radiologist:
Parish Solomon MD unremarkable. Transcribed Date:

03/17/2018 IMPRESSION: 11:36
Finalized Date: 1. Gallbladder 03/17/2018 wall thickening 11:37 with pericystic fluid in the presence
of a 4mm radiopaque gallstone in the cystic duct; findings suspicious
for acute cholecystitis with cholelithiasis. Correlate with subsequent
abdominal ultrasound.
2. Right middle lobe 4 mm pleural-based nodule. Dedicated CT
thorax study obtained for further evaluation as clinically warranted..
3. Prominent prostate. Correlate with PSA level.

< br/> Resident Radiologist: Christiano Griffiths MD Resident Radiologist
Attending Radiologist: Parish Solomon MD
Finalizing Radiologist: Parish Solomon MD
Transcribed Date: 03/17/2018 11:36
Finalized Date: 03/17/2018 11:37

</td> Abdomen (PACSIMAGE <td> 03/17/2018 [facility] 06:51</td><td> [facility] ) Final Abdomen Limited Health Care Result [employer] Name: </td><td><JEVON Yates styleCode="Itali Sex: M : cs">(PACSIMAGE 1965 Location: M Admitting )</paragraph><br Physician: />
Final EMERGENCY Result SERVICE

Requesting Name: FAHAD Physician: JEVON NATHAN
MRN: Exam: [id number] Sex: M ABDOMEN LIMITED
03/17/2018 : 07:20 1965 CLINICAL Location: M HISTORY
PROVIDED : Admitting Right upper Physician: quadrant pain EMERGENCY COMPARISON: SERVICE CT scan
03/17/2018 Requesting FINDINGS: Physician: FRANCISCO There is a JAC heterogeneous

liver with Exam: US ABDOMEN overall LIMITED increased 03/17/2018 07:20 echogenicity as compared to

the right CLINICAL kidney HISTORY PROVIDED parenchyma and : Right upper decreased quadrant pain penetration consistent with

hepatosteatosis COMPARISON: CT . This scan 03/17/2018 condition limits

ultrasound FINDINGS: evaluation for

underlying There is a parenchymal heterogeneous abnormalities liver with and/ or overall masses.. increased Gallbladder is echogenicity underdistended
with sludge and as compared to small bile the right kidney stones/crystals parenchyma and . At least decreased one at level of penetration cystic duct.
Gallbladder consistent with wall is hepatosteatosis. thickened may This condition be secondary to limits underdistention ultrasound and or edema..
It measures evaluation for approximately underlying 0.36 cm.No parenchymal sonographic abnormalities Rojas's sign and/ or masses.. according to bottle house quality control technician .

No intrahepatic Gallbladder is biliary ductal underdistended dilatation. The with sludge and pancreas small bile completely stones/crystals. obscured by air
and antrum and At least one duodenum so at level of distal common cystic duct. bile duct not Gallbladder wall visualized. is thickened Common bile
duct upper of may be secondary destini hepatis to upper limits underdistention normal and 0.56 and or edema.. cm. Color It measures Doppler
supplementation approximately shows a patent 0.36 cm.No main portal sonographic vein with Rojas's sign normal according direction of
to flow.. No bottle house quality control technician right-sided
. pleural No intrahepatic effusion or biliary ductal right upper dilatation. The quadrant pancreas ascites is completely demonstrated.
IMPRESSION: obscured by air Hepatic and antrum and steatosis duodenum so Sludge and distal common small floating bile stones/crystals
duct in gallbladder not visualized. wall Common bile duct thickening with upper of destini stone at level hepatis of cystic duct
seen on CT upper limits scan. normal and 0.56 FINDINGS cm. suspicious for

cholecystitis Color Doppler although no supplementation reported shows a patent Rojas's sign main portal vein correlate with
any pain relief with normal given . direction of Resident flow.. Radiologist:

Attending No right-sided Radiologist: pleural effusion Roberta Kirby or right upper MD Finalizing quadrant ascites Radiologist:
Roberta Kirby is MD demonstrated. Transcribed Date:

03/17/2018 IMPRESSION: 08:00

Finalized Date: Hepatic 03/17/2018 steatosis 08:08
Sludge and small floating stones/crystals in gallbladder wall
thickening with stone at level of cystic duct seen on CT scan.
FINDINGS suspicious for cholecystitis although no reported Rojas's
sign correlate with any pain relief given .

< br/> Resident Radiologist:
Attending Radiologist: Roberta Kirby MD
Finalizing Radiologist: Roberta Kirby MD
Transcribed Date: 03/17/2018 08:00
Finalized Date: 03/17/2018 08:08

</td> ID Date Data Source [id number] 03/18/2018 09:19:38 AM EST [facility] [place] [id number] Corporation Name Value Range Interpretation Description Data Sup porting Code Source(s) Document(s ) Leukocytes 9.6 k/mm3 4.8-10 <td> 03/19/2018 [place] [#/volume] in .8 02:26</td><td> [facility] Blood by k/mm3 WBC </td><td> Health Care Automated count Corporation 9.6
(4.8-10.8) k/mm3 </td> Erythrocyte 87.8 fL 80.0-9 <td> 03/19/2018 [place] mean 4.0 fL 02:26</td><td> [facility] corpuscular MCV </td><td> Health Care volume [[employer] volume] by 87.8 Automated count
(80.0-94.0) fL </td> Erythrocytes 5.01 m/mm3 4.70-6 <td> 03/19/2018 [facility] [#/volume] in .10 02:26</td><td> [facility] Blood m/mm3 RBC </td><td> Health Care [employer] 5.01
(4.70-6.10) m/mm3 </td> Hemoglobin 14.9 g/dL 14.0-1 <td> 03/19/2018 [place] [Mass/volume] 8.0 02:26</td><td> [place] in Blood g/dL HGB </td><td> Health Care [employer] 14.9
(14.0-18.0) g/dL </td> Hematocrit 44.0 % 40.8-4 <td> 03/19/2018 [place] [Volume 6.9 % 02:26</td><td> County Fraction] of HCT </td><td> Health Care Blood by [employer] Automated count 44.0
(40.8-46.9) % </td> Erythrocyte 29.7 pg 27.0-3 <td> 03/19/2018 [place] mean 1.5 pg 02:26</td><td> [facility] corpuscular MCH </td><td> Health Care hemoglobin [employer] [Entitic mass] 29.7 by Automated count
(27.0-31.5) pg </td> Platelet mean 11.2 fL 9.8-12 <td> 03/19/2018 [facility] r volume [Entitic .8 fL 02:26</td><td> County volume] in MPV </td><td> Health Care Blood by [employer] Automated count 11.2
(9.8-12.8) fL </td> Erythrocyte 33.9 % 32.0-3 <td> 03/19/2018 [place] mean 6.0 % 02:26</td><td> County corpuscular MCHC </td><td> Health Care hemoglobin [employer] concentration 33.9 [Mass/volume] in Blood from
Fetus by (32.0-36.0) % Automated count </td> Erythrocyte 12.6 % 11.5-1 <td> 03/19/2018 [place] distribution 4.5 % 02:26</td><td> County width [Entitic RDW </td><td> Health Car e volume] by [employer] Automated count 12.6
(11.5-14.5) % </td> Platelets 218 k/mm3 160-41 <td> 03/19/2018 [place] [#/volume] in 0 02:26</td><td> [facility] Blood by k/mm3 Platelet Count [facility] Automated count </td><td> [facility] 218
(160-410) k/mm3 </td> Lymphocytes 9.1 % 16.0-5 <td> 03/17/2018 [place] [#/volume] in 0.0 % 04:06</td><td> [facility] Blood by Lymphocytes [facility] Automated count </td><td><brooks Corporat ion raph styleCode="Bold "> 9.1 L </paragraph>
(16.0-50.0) % </td> Monocytes/Leuko 3.8 % 0.0-11 <td> 03/17/2018 [facility] cytes [Pure .0 % 04:06</td><td> [facility] number Monocytes. Health Care fraction] in </td><td> [facility] Blood by Automated count 3.8
(0.0-11.0) % </td> Neutrophils [#] 85.9 % 34.0-7 <td> 03/17/2018 [facility] in Body fluid 6.0 % 04:06</td><td> [facility] by Manual count Neutrophils [facility] </td><td><brooks [employer] raph styleCode="Bold "> 85.9 H </paragraph>
(34.0-76.0) % </td> Immature 0.4 % 0.0-0. <td> 03/17/2018 [place] granulocytes/10 5 % 04:06</td><td> [facility] 0 leukocytes in IG% </td><td> [facility] Blood by [employer] Automated count 0.4
(0.0-0.5) %
The IG fraction represents metamyelocytes, myelocytes and/or
promyelocytes and is only reported as part of the automated
differential when found at a percentage of less than 6.
If higher than 6%, a manual differential will be performed.

(0.0-0.5) % </td> Basophils+Eosin 0.4 % 0.0-5. <td> 03/17/2018 [facility] ophils+Monocyte 0 % 04:06</td><td> County s [#/volume] in Eosinophils Health Care Blood by </td><td> [employer] Automated count 0.4
(0.0-5.0) % </td> Glucose 106 mg/dL 70-105 <td> 03/19/2018 [place] [Mass/volume] mg/dL 02:26</td><td> [place] in Blood Glucose-Serum [facility] </td><td><[employer] raph styleCode="Bold "> 106 H </paragraph>
(70-105) mg/dL </td> Basophils 0.4 % 0.0-2. <td> 03/17/2018 [place] [#/volume] in 0 % 04:06</td><td> County Blood by Basophils [facility] Care Automated count </td><td> [employer] 0.4
(0.0-2.0) % </td> Urea nitrogen 14 mg/dL 6-22 <td> 03/19/2018 [facility] r [Mass/volume] mg/dL 02:26</td><td> [place] in Blood BUN </td><td> [facility] [employer] 14
(6-22) mg/dL </td> Chloride 105 mEq/L 98-107 <td> 03/19/2018 [place] [Moles/volume] mEq/L 02:26</td><td> County in Serum or Chloride Health Care Plasma </td><td> [employer] 105
(98-107) mEq/L </td> Potassium 4.1 mEq/L 3.5-5. <td> 03/19/2018 [place] [Moles/volume] 1 02:26</td><td> County in Serum or mEq/L Potassium-Serum Health Care Plasma </td><td> [employer] 4.1
(3.5-5.1) mEq/L </td> Carbon dioxide, 27 mEq/L 22-30 <td> 03/19/2018 [facility] total mEq/L 02:26</td><td> [facility] [Moles/volume] CO2 </td><td> Health Car e in Serum or Corporation Plasma 27
(22-30) mEq/L </td> Sodium 140 mEq/L 135-14 <td> 03/19/2018 [place] [Moles/volume] 5 02:26</td><td> County in Serum or mEq/L Sodium-Serum Health Care Plasma </td><td> Corporation 140
(135-145) mEq/L </td> Alanine 26 U/L 6-55 <td> 03/17/2018 [place] aminotransferas U/L 04:06</td><td> County e [Enzymatic ALT (SGPT) Health Care activity/volume </td><td> [employer] ] in Serum or Plasma 26
(6-55) U/L </td> Aspartate 25 U/L 4-35 <td> 03/17/2018 [place] aminotransferas U/L 04:06</td><td> County e [Enzymatic AST (SGOT) Health Care activity/volume </td><td> [employer] ] in Serum or Plasma 25
(4-35) U/L </td> Proteins - 7.7 g/dL 6.4-8. <td> 03/17/2018 [place] Total 3 g/dL 04:06</td><td> [facility] Proteins - Health Care Total [employer] </td><td> 7.7
(6.4-8.3) g/dL </td> Bilirubin.total 0.6 mg/dL 0.2-1. <td> 03/17/2018 [facility] [Mass/volume] 3 04:06</td><td> [facility] in Blood mg/dL Bilirubin - Health Care Total [employer] </td><td> 0.6
(0.2-1.3) mg/dL </td> Creatinine 1.01 mg/dL 0.72-1 <td> 03/19/2018 [place] [Moles/volume] .25 02:26</td><td> County in Serum or mg/dL Creatinine. Health Care Plasma </td><td> [employer] 1.01
(0.72-1.25) mg/dL </td> Calcium 8.7 mg/dL 8.6-10 <td> 03/19/2018 [place] [Mass/volume] .2 02:26</td><td> County in Blood mg/dL Calcium Health Care </td><td> [employer] 8.7
(8.6-10.2) mg/dL </td> Globulin 3.1 gm/dL 2.9-4. <td> 03/17/2018 [place] [Mass/volume] 0 04:06</td><td> County in Serum gm/dL Globulin Health Care </td><td> [employer] 3.1
(2.9-4.0) gm/dL </td> Hemolysis index No <td> 03/19/2018 [facility] of Serum or Hemolysis 02:26</td><td> County Plasma Hemolysis Index Health [facility] </td><td> [employer] No Hemolysis
</td> Albumin 4.6 g/dL 3.4-4. <td> 03/17/2018 [place] [Mass/volume] 8 g/dL 04:06</td><td> County in Serum or Albumin Health Care Plasma </td><td> [employer] 4.6
(3.4-4.8) g/dL </td> Anion gap in 8 mEq/L 7-13 <td> 03/19/2018 [place] Serum or Plasma mEq/L 02:26</td><td> County Anion Gap Health Care </td><td> [employer] 8
(7-13) mEq/L </td> Phosphate 2.8 mg/dL 2.3-4. <td> 03/19/2018 [place] [Mass/volume] 7 02:26</td><td> County in Serum or mg/dL Inorganic Health Care Plasma Phosphorus [facility] </td><td> 2.8
(2.3-4.7) mg/dL </td> Lipemic index No Lipemia <td> 03/19/2018 [facility] er of Serum or 02:26</td><td> [facility] Plasma Lipemia Index Health Care </td><td> Corporation No Lipemia
</td> Icteric index Non <td> 03/19/2018 [facility] r of Serum or Icteric 02:26</td><td> [facility] Plasma Icteric Index Health Care </td><td> Corporation Non Icteric
</td> Prothrombin 10.4 secs 9.8-12 <td> 03/17/2018 [place] time (PT) .0 04:06</td><td> [facility] secs Prothrombin Health Care Time. Corporation </td><td> 10.4
(9.8-12.0) secs </td> aPTT panel - 26.7 secs 25.0-3 <td> 03/17/2018 [place] Platelet poor 2.0 04:06</td><td> [facility] plasma secs Partial Health Care Thromboplastin [facility] Time </td><td> 26.7
(25.0-32.0) secs </td> Appearance of Clear <td> 03/17/2018 [facility] r Urine 04:06</td><td> [facility] Appearance Health Care </td><td> Corporation Clear
(CLEAR) </td> Glucose Negative <td> 03/17/2018 [place] [Presence] in 04:06</td><td> [facility] Urine by Test Glucose_ Health Care strip </td><td> [employer] Negative
(NEGATIVE) </td> Specific 1.019 {} 1.000- <td> 03/17/2018 [place] gravity of 1.035 04:06</td><td> [facility] Urine by Test Specific Health Care strip [place] [employer] </td><td> 1.019
(1.000-1.035) </td> Protein 1+ (30 <td> 03/17/2018 [place] [Presence] in MG/DL) 04:06</td><td> [facility] Urine by Protein Health Care Automated test Qualitative [employer] strip </td><td> 1+ (30 MG/DL)
(NEGATIVE) </td> Urobilinogen 0.2 mg/dL 0.0-2. <td> 03/17/2018 [place] [Presence] in 0 04:06</td><td> [facility] Urine by mg/dL Urobilinogen [facility] Care Automated test </td><td> Corporation strip 0.2
(0.0-2.0) mg/dL </td> Nitrite Negative <td> 03/17/2018 [place] [Presence] in 04:06</td><td> [facility] Urine by Test Nitrites Health Care strip </td><td> Corporation Negative
(NEGATIVE) </td> Bacteria RARE <td> 03/17/2018 [place] [#/area] in 04:06</td><td> [facility] Urine sediment Bacteria Health Care by Microscopy </td><td> Corporation high power field RARE
(NONE SEEN) /HPF </td> Leukocyte Negative <td> 03/17/2018 [place] esterase 04:06</td><td> [facility] [Presence] in Leukocytes [facility] Urine by Test Esterase Corporation strip </td><td> Negative
(NEGATIVE) </td> Erythrocytes 3 /HPF 0-2 <td> 03/17/2018 [place] [#/area] in /HPF 04:06</td><td> [facility] Urine sediment RBC </td><td> Health Car e by Automated Corporation count 3
(0-2) /HPF </td> Leukocytes <1 <td> 03/17/2018 [place] [Presence] in 04:06</td><td> [facility] Urine by WBC </td><td> Health Care [employer]ated [employer] <1
(0-5) /HPF </td> Bacteria NONE SEEN <td> 03/17/2018 [place] [#/area] in FEW 04:06</td><td> [facility] Urine sediment Epithelial Health Care by Microscopy [employer] high power </td><td> field NONE SEEN
FEW

/LPF </td> Magnesium 2.2 mg/dL 1.6-2. <td> 03/19/2018 [place] [Mass/volume] 6 02:26</td><td> County in Serum or mg/dL Magnesium Level Health Care Plasma </td><td> Corporation 2.2
(1.6-2.6) mg/dL </td> Amorphous RARE <td> 03/17/2018 [place] Crystal < FEW 04:06</td><td> County Amorphous Health Care [employer] </td><td> RARE
/HPF
< FEW

/HPF </td> Leukocytes 9.6 k/mm3 4.8-10 <td> 03/19/2018 [place] [#/volume] in .8 02:26</td><td> [facility] Blood by k/mm3 WBC </td><td> Health Care Automated count [employer] 9.6
(4.8-10.8) k/mm3 </td> Erythrocyte 29.7 pg 27.0-3 <td> 03/19/2018 [place] mean 1.5 pg 02:26</td><td> [facility] corpuscular MCH </td><td> Health Care hemoglobin Corporation [Entitic mass] 29.7 by Automated count
(27.0-31.5) pg </td> Erythrocyte 87.8 fL 80.0-9 <td> 03/19/2018 [place] mean 4.0 fL 02:26</td><td> [facility] corpuscular MCV </td><td> Health Care volume [[employer] volume] by 87.8 Automated count
(80.0-94.0) fL </td> Hematocrit 44.0 % 40.8-4 <td> 03/19/2018 [place] [Volume 6.9 % 02:26</td><td> County Fraction] of HCT </td><td> Health Care Blood by Corporation Automated count 44.0
(40.8-46.9) % </td> Hemoglobin 14.9 g/dL 14.0-1 <td> 03/19/2018 [place] [Mass/volume] 8.0 02:26</td><td> County in Blood g/dL HGB </td><td> Health Care [employer] 14.9
(14.0-18.0) g/dL </td> Erythrocytes 5.01 m/mm3 4.70-6 <td> 03/19/2018 [facility] r [#/volume] in .10 02:26</td><td> [facility] Blood m/mm3 RBC </td><td> [facility] Care [employer] 5.01
(4.70-6.10) m/mm3 </td> Lymphocytes 9.1 % 16.0-5 <td> 03/17/2018 [place] [#/volume] in 0.0 % 04:06</td><td> [facility] Blood by Lymphocytes [facility] [employer] Automated count </td><td><brooks Corpor[employer] ion raph styleCode="Bold "> 9.1 L </paragraph>
(16.0-50.0) % </td> Platelets 218 k/mm3 160-41 <td> 03/19/2018 [place] [#/volume] in 0 02:26</td><td> [facility] Blood by k/mm3 Platelet Count [employer] Automated count </td><td> [employer] 218
(160-410) k/mm3 </td> Platelet mean 11.2 fL 9.8-12 <td> 03/19/2018 [facility] r volume [Entitic .8 fL 02:26</td><td> [facility] volume] in MPV </td><td> Health [facility] Blood by [employer] Automated count 11.2
(9.8-12.8) fL </td> Erythrocyte 12.6 % 11.5-1 <td> 03/19/2018 [place] distribution 4.5 % 02:26</td><td> [facility] width [Entitic RDW </td><td> Health Car e volume] by [employer] Automated count 12.6
(11.5-14.5) % </td> Erythrocyte 33.9 % 32.0-3 <td> 03/19/2018 [place] mean 6.0 % 02:26</td><td> [facility] corpuscular MCHC </td><td> [facility] hemoglobin Corporation concentration 33.9 [Mass/volume] in Blood from
Fetus by (32.0-36.0) % Automated count </td> Neutrophils [#] 85.9 % 34.0-7 <td> 03/17/2018 [facility] in Body fluid 6.0 % 04:06</td><td> [facility] by Manual count Neutrophils [facility] </td><td><brooks [facility] raph styleCode="Bold "> 85.9 H </paragraph>
(34.0-76.0) % </td> Immature 0.4 % 0.0-0. <td> 03/17/2018 [place] granulocytes/10 5 % 04:06</td><td> [facility] 0 leukocytes in IG% </td><td> [facility] Blood by [employer] Automated count 0.4
(0.0-0.5) %
The IG fraction represents metamyelocytes, myelocytes and/or
promyelocytes and is only reported as part of the automated
differential when found at a percentage of less than 6.
If higher than 6%, a manual differential will be performed.

(0.0-0.5) % </td> Basophils 0.4 % 0.0-2. <td> 03/17/2018 [place] [#/volume] in 0 % 04:06</td><td> [facility] Blood by Basophils [facility] Automated count </td><td> [employer] 0.4
(0.0-2.0) % </td> Basophils+Eosin 0.4 % 0.0-5. <td> 03/17/2018 [facility] ophils+Monocyte 0 % 04:06</td><td> [facility] s [#/volume] in Eosinophils [facility] Blood by </td><td> [employer] Automated count 0.4
(0.0-5.0) % </td> Monocytes/Leuko 3.8 % 0.0-11 <td> 03/17/2018 [facility] cytes [Pure .0 % 04:06</td><td> County number Monocytes. Health Care fraction] in </td><td> [employer] Blood by Automated count 3.8
(0.0-11.0) % </td> Carbon dioxide, 27 mEq/L 22-30 <td> 03/19/2018 [facility] total mEq/L 02:26</td><td> [facility] [Moles/volume] CO2 </td><td> Health Car e in Serum or Corporation Plasma 27
(22-30) mEq/L </td> Chloride 105 mEq/L 98-107 <td> 03/19/2018 [place] [Moles/volume] mEq/L 02:26</td><td> County in Serum or Chloride Health Care Plasma </td><td> [employer] 105
(98-107) mEq/L </td> Potassium 4.1 mEq/L 3.5-5. <td> 03/19/2018 [place] [Moles/volume] 1 02:26</td><td> County in Serum or mEq/L Potassium-Serum Health Care Plasma </td><td> [employer] 4.1
(3.5-5.1) mEq/L </td> Sodium 140 mEq/L 135-14 <td> 03/19/2018 [place] [Moles/volume] 5 02:26</td><td> County in Serum or mEq/L Sodium-Serum Health Care Plasma </td><td> [employer] 140
(135-145) mEq/L </td> Glucose 106 mg/dL 70-105 <td> 03/19/2018 [place] [Mass/volume] mg/dL 02:26</td><td> County in Blood Glucose-Serum Health Care </td><td><brooks [employer] raph styleCode="Bold "> 106 H </paragraph>
(70-105) mg/dL </td> Bilirubin.total 0.6 mg/dL 0.2-1. <td> 03/17/2018 [facility] [Mass/volume] 3 04:06</td><td> County in Blood mg/dL Bilirubin - Health Care Total [facility] </td><td> 0.6
(0.2-1.3) mg/dL </td> Alanine 26 U/L 6-55 <td> 03/17/2018 [place] aminotransferas U/L 04:06</td><td> County e [Enzymatic ALT (SGPT) Health Care activity/volume </td><td> Corporation ] in Serum or Plasma 26
(6-55) U/L </td> Aspartate 25 U/L 4-35 <td> 03/17/2018 [place] aminotransferas U/L 04:06</td><td> County e [Enzymatic AST (SGOT) Health Care activity/volume </td><td> Corporation ] in Serum or Plasma 25
(4-35) U/L </td> Creatinine 1.01 mg/dL 0.72-1 <td> 03/19/2018 [place] [Moles/volume] .25 02:26</td><td> County in Serum or mg/dL Creatinine. Health Care Plasma </td><td> [employer] 1.01
(0.72-1.25) mg/dL </td> Urea nitrogen 14 mg/dL 6-22 <td> 03/19/2018 [facility] r [Mass/volume] mg/dL 02:26</td><td> [facility] in Blood BUN </td><td> Health Care [employer] 14
(6-22) mg/dL </td> Globulin 3.1 gm/dL 2.9-4. <td> 03/17/2018 [place] [Mass/volume] 0 04:06</td><td> County in Serum gm/dL Globulin Health Care </td><td> [employer] 3.1
(2.9-4.0) gm/dL </td> Anion gap in 8 mEq/L 7-13 <td> 03/19/2018 [place] Serum or Plasma mEq/L 02:26</td><td> [facility] Anion Gap Health Care </td><td> [employer] 8
(7-13) mEq/L </td> Calcium 8.7 mg/dL 8.6-10 <td> 03/19/2018 [place] [Mass/volume] .2 02:26</td><td> County in Blood mg/dL Calcium Health Care </td><td> [employer] 8.7
(8.6-10.2) mg/dL </td> Albumin 4.6 g/dL 3.4-4. <td> 03/17/2018 [place] [Mass/volume] 8 g/dL 04:06</td><td> County in Serum or Albumin Health Care Plasma </td><td> [employer] 4.6
(3.4-4.8) g/dL </td> Proteins - 7.7 g/dL 6.4-8. <td> 03/17/2018 [place] Total 3 g/dL 04:06</td><td> [facility] Proteins - Health Care Total [facility] </td><td> 7.7
(6.4-8.3) g/dL </td> Prothrombin 10.4 secs 9.8-12 <td> 03/17/2018 [place] time (PT) .0 04:06</td><td> [facility] secs Prothrombin Health Care Time. [facility] </td><td> 10.4
(9.8-12.0) secs </td> Phosphate 2.8 mg/dL 2.3-4. <td> 03/19/2018 [place] [Mass/volume] 7 02:26</td><td> County in Serum or mg/dL Inorganic Health Care Plasma Phosphorus [facility] </td><td> 2.8
(2.3-4.7) mg/dL </td> Icteric index Non <td> 03/19/2018 [facility] r of Serum or Icteric 02:26</td><td> [facility] Plasma Icteric Index Health Care </td><td> [employer] Non Icteric
</td> Lipemic index No Lipemia <td> 03/19/2018 [facility] er of Serum or 02:26</td><td> County Plasma Lipemia Index Health Care </td><td> Trillian Mobile AB No Lipemia
</td> Hemolysis index No <td> 03/19/[address] [address] of Serum or Hemolysis 02:26</td><td> [facility] Plasma Hemolysis Index Health Care </td><td> Corporation No Hemolysis
</td> Glucose Negative <td> 03/17/2018 [place] [Presence] in 04:06</td><td> [facility] Urine by Test Glucose_ Health Care strip </td><td> Corporation Negative
(NEGATIVE) </td> Protein 1+ (30 <td> 03/17/2018 [place] [Presence] in MG/DL) 04:06</td><td> [facility] Urine by Protein Health Care Automated test Qualitative Corporation strip </td><td> 1+ (30 MG/DL)
(NEGATIVE) </td> Specific 1.019 {} 1.000- <td> 03/17/2018 [place] gravity of 1.035 04:06</td><td> [facility] Urine by Test Specific Health Care strip [employer] </td><td> 1.019
(1.000-1.035) </td> Appearance of Clear <td> 03/17/2018 [facility] r Urine 04:06</td><td> [facility] Appearance Health Care </td><td> Corporation Clear
(CLEAR) </td> aPTT panel - 26.7 secs 25.0-3 <td> 03/17/2018 [place] Platelet poor 2.0 04:06</td><td> [facility] plasma secs Partial Health Care Thromboplastin Corporation Time </td><td> 26.7
(25.0-32.0) secs </td> Erythrocytes 3 /HPF 0-2 <td> 03/17/2018 [place] [#/area] in /HPF 04:06</td><td> [facility] Urine sediment RBC </td><td> Health Car e by Automated Corporation count 3
(0-2) /HPF </td> Leukocytes <1 <td> 03/17/2018 [place] [Presence] in 04:06</td><td> [facility] Urine by WBC </td><td> Health Care Automated Corporation <1
(0-5) /HPF </td> Leukocyte Negative <td> 03/17/2018 [place] esterase 04:06</td><td> [facility] [Presence] in Leukocytes Health Care Urine by Test Esterase [employer]illian [employer] strip </td><td> Negative
(NEGATIVE) </td> Nitrite Negative <td> 03/17/2018 [place] [Presence] in 04:06</td><td> [facility] Urine by Test Nitrites Health Care strip </td><td> Corporation Negative
(NEGATIVE) </td> Urobilinogen 0.2 mg/dL 0.0-2. <td> 03/17/2018 [place] [Presence] in 0 04:06</td><td> [facility] Urine by mg/dL Urobilinogen [facility] Care Automated test </td><td> [employer]illian [employer] strip 0.2
(0.0-2.0) mg/dL </td> Magnesium 2.2 mg/dL 1.6-2. <td> 03/19/2018 [place] [Mass/volume] 6 02:26</td><td> [place] in Serum or mg/dL Magnesium Level Health Care Plasma </td><td> [employer]illian [employer] 2.2
(1.6-2.6) mg/dL </td> Amorphous RARE <td> 03/17/2018 [place] Crystal < FEW 04:06</td><td> [facility] Amorphous Health Care Crystal [employer]illian [employer] </td><td> RARE
/HPF
< FEW

/HPF </td> Bacteria NONE SEEN <td> 03/17/2018 [place] [#/area] in FEW 04:06</td><td> [facility] Urine sediment Epithelial Health Care by Microscopy [employer] high power </td><td> field NONE SEEN
FEW

/LPF </td> Bacteria RARE <td> 03/17/2018 [place] [#/area] in 04:06</td><td> [facility] Urine sediment Bacteria Health Care by Microscopy </td><td> [employer]illian Mobile AB high power field RARE
(NONE SEEN) /HPF </td> Erythrocyte 86.4 fL 80.0-9 <td> 03/18/2018 [place] mean 4.0 fL 01:37</td><td> [facility] corpuscular MCV </td><td> Health Care volume [Entitic Corporation volume] by 86.4 Automated count
(80.0-94.0) fL </td> Hematocrit 45.2 % 40.8-4 <td> 03/18/2018 [place] [Volume 6.9 % 01:37</td><td> [facility] Fraction] of HCT </td><td> Health Care Blood by Corporation Automated count 45.2
(40.8-46.9) % </td> Hemoglobin 15.4 g/dL 14.0-1 <td> 03/18/2018 [place] [Mass/volume] 8.0 01:37</td><td> [facility] in Blood g/dL HGB </td><td> [facility] Care Corporation 15.4
(14.0-18.0) g/dL </td> Erythrocytes 5.23 m/mm3 4.70-6 <td> 03/18/2018 [facility] r [#/volume] in .10 01:37</td><td> [facility] Blood m/mm3 RBC </td><td> [facility] Trillian [employer] AB 5.23
(4.70-6.10) m/mm3 </td> Leukocytes 12.1 k/mm3 4.8-10 <td> 03/18/2018 [place] [#/volume] in .8 01:37</td><td> [facility] Blood by k/mm3 WBC Health Care Automated count </td><td><brooks Corporat ion raph styleCode="Bold "> 12.1 H </paragraph>
(4.8-10.8) k/mm3 </td> Lymphocytes 9.1 % 16.0-5 <td> 03/17/2018 [place] [#/volume] in 0.0 % 04:06</td><td> [facility] Blood by Lymphocytes Health Care Automated count </td><td><brooks Corporat ion raph styleCode="Bold "> 9.1 L </paragraph>
(16.0-50.0) % </td> Platelets 231 k/mm3 160-41 <td> 03/18/2018 [place] [#/volume] in 0 01:37</td><td> [facility] Blood by k/mm3 Platelet Count Health Care Automated count </td><td> Trillian Mobile AB 231
(160-410) k/mm3 </td> Platelet mean 11.3 fL 9.8-12 <td> 03/18/2018 [facility] r volume [Entitic .8 fL 01:37</td><td> County volume] in MPV </td><td> Health Care Blood by Trillian Mobile [employer] Automated count 11.3
(9.8-12.8) fL </td> Erythrocyte 12.4 % 11.5-1 <td> 03/18/2018 [place] distribution 4.5 % 01:37</td><td> County width [Entitic RDW </td><td> Health Car e volume] by Trillian Mobile [employer] Automated count 12.4
(11.5-14.5) % </td> Erythrocyte 34.1 % 32.0-3 <td> 03/18/2018 [place] mean 6.0 % 01:37</td><td> [facility] corpuscular MCHC </td><td> Health Care hemoglobin Corporation concentration 34.1 [Mass/volume] in Blood from
Fetus by (32.0-36.0) % Automated count </td> Erythrocyte 29.4 pg 27.0-3 <td> 03/18/2018 [place] mean 1.5 pg 01:37</td><td> [facility] corpuscular MCH </td><td> Health Care hemoglobin Corporation [Entitic mass] 29.4 by Automated count
(27.0-31.5) pg </td> Neutrophils [#] 85.9 % 34.0-7 <td> 03/17/2018 [facility] in Body fluid 6.0 % 04:06</td><td> [facility] by Manual count Neutrophils Health Care </td><td><brooks Trillian [employer] AB raph styleCode="Bold "> 85.9 H </paragraph>
(34.0-76.0) % </td> Immature 0.4 % 0.0-0. <td> 03/17/2018 [place] granulocytes/10 5 % 04:06</td><td> [facility] 0 leukocytes in IG% </td><td> [facility] Blood by Trillian Mobile [employer] Automated count 0.4
(0.0-0.5) %
The IG fraction represents metamyelocytes, myelocytes and/or
promyelocytes and is only reported as part of the automated
differential when found at a percentage of less than 6.
If higher than 6%, a manual differential will be performed.

(0.0-0.5) % </td> Basophils 0.4 % 0.0-2. <td> 03/17/2018 [place] [#/volume] in 0 % 04:06</td><td> [facility] Blood by Basophils [facility] Automated count </td><td> [facility] 0.4
(0.0-2.0) % </td> Basophils+Eosin 0.4 % 0.0-5. <td> 03/17/2018 [facility] ophils+Monocyte 0 % 04:06</td><td> [facility] s [#/volume] in Eosinophils [facility] Blood by </td><td> [employer]illian Mobile [employer] Automated count 0.4
(0.0-5.0) % </td> Monocytes/Leuko 3.8 % 0.0-11 <td> 03/17/2018 [facility] cytes [Pure .0 % 04:06</td><td> [facility] number Monocytes. Health Care fraction] in </td><td> [facility] Blood by Automated count 3.8
(0.0-11.0) % </td> Urea nitrogen 10 mg/dL 6-22 <td> 03/18/2018 [facility] r [Mass/volume] mg/dL 01:37</td><td> [facility] in Blood BUN </td><td> [facility] 10
(6-22) mg/dL </td> Carbon dioxide, 23 mEq/L 22-30 <td> 03/18/2018 [facility] total mEq/L 01:37</td><td> [facility] [Moles/volume] CO2 </td><td> Health Car e in Serum or Corporation Plasma 23
(22-30) mEq/L </td> Chloride 103 mEq/L 98-107 <td> 03/18/2018 [place] [Moles/volume] mEq/L 01:37</td><td> [place] in Serum or Chloride Health Care Plasma </td><td> [employer]illian [employer] 103
(98-107) mEq/L </td> Potassium 4.5 mEq/L 3.5-5. <td> 03/18/2018 [place] [Moles/volume] 1 01:37</td><td> [place] in Serum or mEq/L Potassium-Serum Health Care Plasma </td><td> [employer] 4.5
(3.5-5.1) mEq/L </td> Sodium 137 mEq/L 135-14 <td> 03/18/2018 [place] [Moles/volume] 5 01:37</td><td> [place] in Serum or mEq/L Sodium-Serum Health Care Plasma </td><td> [employer]illian Mobile AB 137
(135-145) mEq/L </td> Glucose 205 mg/dL 70-105 <td> 03/18/2018 [place] [Mass/volume] mg/dL 01:37</td><td> [place] in Blood Glucose-Serum Health Care </td><td><brooks Trillian Mobile AB raph styleCode="Bold "> 205 H </paragraph>
(70-105) mg/dL </td> Proteins - 7.7 g/dL 6.4-8. <td> 03/17/2018 [place] Total 3 g/dL 04:06</td><td> [facility] Proteins - Health Care Total Corporation </td><td> 7.7
(6.4-8.3) g/dL </td> Bilirubin.total 0.6 mg/dL 0.2-1. <td> 03/17/2018 [facility] [Mass/volume] 3 04:06</td><td> [place] in Blood mg/dL Bilirubin - Health Care Total Corporation </td><td> 0.6
(0.2-1.3) mg/dL </td> Alanine 26 U/L 6-55 <td> 03/17/2018 [place] aminotransferas U/L 04:06</td><td> County e [Enzymatic ALT (SGPT) Health Care activity/volume </td><td> Corporation ] in Serum or Plasma 26
(6-55) U/L </td> Aspartate 25 U/L 4-35 <td> 03/17/2018 [place] aminotransferas U/L 04:06</td><td> County e [Enzymatic AST (SGOT) Health Care activity/volume </td><td> Corporation ] in Serum or Plasma 25
(4-35) U/L </td> Creatinine 1.12 mg/dL 0.72-1 <td> 03/18/2018 [place] [Moles/volume] .25 01:37</td><td> [facility] in Serum or mg/dL Creatinine. Health Care Plasma </td><td> [employer]illian [employer] 1.12
(0.72-1.25) mg/dL </td> Lipemic index No Lipemia <td> 03/18/2018 [facility] of Serum or 01:37</td><td> [facility] Plasma Lipemia Index [facility] </td><td> Trillian [employer] No Lipemia
</td> Hemolysis index No <td> 03/18/2018 [facility] Serum or Hemolysis 01:37</td><td> [facility] Plasma Hemolysis Index Health [facility] </td><td> Trillian Mobile AB No Hemolysis
</td> Globulin 3.1 gm/dL 2.9-4. <td> 03/17/2018 [place] [Mass/volume] 0 04:06</td><td> [facility] in Serum gm/dL Globulin Health Care </td><td> [employer]illian [employer] AB 3.1
(2.9-4.0) gm/dL </td> Anion gap in 11 mEq/L 7-13 <td> 03/18/2018 [place] Serum or Plasma mEq/L 01:37</td><td> [facility] Anion Gap Health Care </td><td> Trillian Mobile AB 11
(7-13) mEq/L </td> Calcium 9.1 mg/dL 8.6-10 <td> 03/18/2018 [place] [Mass/volume] .2 01:37</td><td> [facility] in Blood mg/dL Calcium Health Care </td><td> [employer]illian [employer] AB 9.1
(8.6-10.2) mg/dL </td> Albumin 4.6 g/dL 3.4-4. <td> 03/17/2018 [place] [Mass/volume] 8 g/dL 04:06</td><td> [facility] in Serum or Albumin Health Care Plasma </td><td> Trillian Mobile AB 4.6
(3.4-4.8) g/dL </td> Specific 1.019 {} 1.000- <td> 03/17/2018 [place] gravity of 1.035 04:06</td><td> [facility] Urine by Test Specific [facility] Care strip [place] Trillian Mobile AB </td><td> 1.019
(1.000-1.035) </td> Appearance of Clear <td> 03/17/2018 [facility] r Urine 04:06</td><td> [facility] Appearance Health Care </td><td> Trillian Mobile AB Clear
(CLEAR) </td> aPTT panel - 26.7 secs 25.0-3 <td> 03/17/2018 [place] Platelet poor 2.0 04:06</td><td> [facility] plasma secs Partial Health Care Thromboplastin [facility] Time </td><td> 26.7
(25.0-32.0) secs </td> Prothrombin 10.4 secs 9.8-12 <td> 03/17/2018 [place] time (PT) .0 04:06</td><td> [facility] secs Prothrombin Health Care Time. [employer]illian Mobile AB </td><td> 10.4
(9.8-12.0) secs </td> Phosphate 2.7 mg/dL 2.3-4. <td> 03/18/2018 [place] [Mass/volume] 7 01:37</td><td> [place] in Serum or mg/dL Inorganic Health Care Plasma Phosphorus Corporation </td><td> 2.7
(2.3-4.7) mg/dL </td> Icteric index Not <td> 03/18/2018 [facility] r of Serum or Icteric 01:37</td><td> [facility] Plasma Icteric Index Health Care </td><td> Corporation Not Icteric
</td> Leukocyte Negative <td> 03/17/2018 [place] esterase 04:06</td><td> [facility] [Presence] in Leukocytes Health Care Urine by Test Esterase Corporation strip </td><td> Negative
(NEGATIVE) </td> Nitrite Negative <td> 03/17/2018 [place] [Presence] in 04:06</td><td> [facility] Urine by Test Nitrites Health Care strip </td><td> Corporation Negative
(NEGATIVE) </td> Urobilinogen 0.2 mg/dL 0.0-2. <td> 03/17/2018 [place] [Presence] in 0 04:06</td><td> [facility] Urine by mg/dL Urobilinogen Health Care Automated test </td><td> Corporation strip 0.2
(0.0-2.0) mg/dL </td> Glucose Negative <td> 03/17/2018 [place] [Presence] in 04:06</td><td> [facility] Urine by Test Glucose_ Health Care strip </td><td> Corporation Negative
(NEGATIVE) </td> Protein 1+ (30 <td> 03/17/2018 [place] [Presence] in MG/DL) 04:06</td><td> [facility] Urine by Protein Health Care Automated test [employer]itative [employer] strip </td><td> 1+ (30 MG/DL)
(NEGATIVE) </td> Magnesium 2.1 mg/dL 1.6-2. <td> 03/18/2018 [place] [Mass/volume] 6 01:37</td><td> [place] in Serum or mg/dL Magnesium Level Health Care Plasma </td><td> Corporation 2.1
(1.6-2.6) mg/dL </td> Amorphous RARE <td> 03/17/2018 [place] Crystal < FEW 04:06</td><td> [facility] Amorphous Health Care Crystal Corporation </td><td> RARE
/HPF
< FEW

/HPF </td> Bacteria NONE SEEN <td> 03/17/2018 [place] [#/area] in FEW 04:06</td><td> [facility] Urine sediment Epithelial Health Care by Microscopy Cells Corporation high power </td><td> field NONE SEEN
FEW

/LPF </td> Bacteria RARE <td> 03/17/2018 [place] [#/area] in 04:06</td><td> [facility] Urine sediment Bacteria Health Care by Microscopy </td><td> Corporation high power field RARE
(NONE SEEN) /HPF </td> Erythrocytes 3 /HPF 0-2 <td> 03/17/2018 [place] [#/area] in /HPF 04:06</td><td> [facility] Urine sediment RBC </td><td> Health Car e by [employer] count 3
(0-2) /HPF </td> Leukocytes <1 <td> 03/17/2018 [place] [Presence] in 04:06</td><td> [facility] Urine by WBC </td><td> Health Care Automated Trillian Mobile AB <1
(0-5) /HPF </td> Procedure Social History Code Duration Value Status Description Data Source(s ) Smoking Never smoker completed Never smoker [facility] [employer] Vital Signs ID Date Data Source UNK Name Value Range Interpretation Code Description Data Source(s) Diastolic blood 80 {} Normal (applies to 80 {} [place] pressure non-numeric results) [facility] ty [facility] Corporati on Systolic blood 113 {} Normal (applies to 113 {} [place] pressure non-numeric results) Coun ty [facility] Care Corporati on First Respiration 17.0000 {} Normal (applies to 17.0000 {} [place] rate Set non-numeric results) Coun ty Health Care Corporati on Heart rate 69.0000 {} Normal (applies to 69.0000 {} [place] non-numeric results) Coun ty [facility] Care Corporati on Body temperature 98.5000 {} Normal (applies to 98.5000 {} [place] non-numeric results) Coun ty Health Care Corporati on Diastolic blood 78 {} Normal (applies to 78 {} [place] pressure non-numeric results) Coun ty Health Care Corporati on Systolic blood 111 {} Normal (applies to 111 {} [facility] non-[facility] results) Coun ty Health Care Corporati on First Respiration 19.0000 {} Normal (applies to 19.0000 {} [place] rate Set non-numeric results) Coun ty Health Care Corporati on Heart rate 68.0000 {} Normal (applies to 68.0000 {} [place] non-numeric results) Coun ty Health Care Corporati on Body temperature 97.5000 {} Normal (applies to 97.5000 {} [place] non-numeric results) Coun ty Health Care Corporati on wt - obtain Normal (applies to {} [place] non-numeric results) Coun ty [facility] Care Corporati on weight - kg 70.0000 {} Normal (applies to 70.0000 {} [place] non-numeric results) Coun ty Health Care Corporati on
[2019-12-14] MEDS ORDERED: ERYTHROMYCIN 0.5% OPHTHALMIC OINTMENT 3.5 GM TUBE ONE (12:24)
[2019-12-14] MEDS ORDERED: POVIDONE-IODINE 5% OPHTHALMIC PREP 30 ML SOLUTION ONE (12:24)
[2019-12-14] MEDS ORDERED: TETRACAINE 0.5% OPHTH SOLN 2 ML BOTTLE ONE (12:24)
[2019-12-14] MEDS ORDERED: BUPIVACAINE HCL/PF 0.5% (5MG/ML) 10 ML VIAL ONE (12:24)
[2019-12-14] MEDS ORDERED: LIDOCAINE 1%/EPI 1:100000 (20 ML MULTI DOSE VIAL) ONE (12:24)
[2019-12-14] MEDS ORDERED: PROPOFOL 20 ML ONE (12:29)
[2019-12-14] MEDS ORDERED: MIDAZOLAM HCL 2 MG/2 ML SINGLE DOSE VIAL ONE (12:29)
[2019-12-14] MEDS ORDERED: KETOROLAC TROMETHAMINE 30 MG/1 ML VIAL ONE (12:42)
[2019-12-14] MEDS ORDERED: ONDANSETRON 4 MG/2 ML VIAL ONE (12:42)
[2019-12-14] MEDS ORDERED: DEXAMETHASONE SOD PHOSPHATE 4 MG/1 ML VIAL ONE (12:42)
[2019-12-14] MEDS ORDERED: ONDANSETRON 4 MG/2 ML VIAL IVPUSH PRN (13:24)
[2019-12-14] MEDS ORDERED: PROMETHAZINE HCL 25 MG/1 ML VIAL IVPUSH PRN (13:24)
[2019-12-14] MEDS ORDERED: oxyCODONE HCL 5 MG TABLET PO PRN ×2 (13:24)
--- NOTE | 2019-12-14 14:17 | OP ---
DATE OF OPERATION: 12/14/2019 PREOPERATIVE DIAGNOSIS: Eyelid tumor, right upper lid. POSTOPERATIVE DIAGNOSIS: Eyelid tumor, right upper lid. PROCEDURE: Transcutaneous excision of tumor, right upper lid. SURGEON: Aries Saab MD ANESTHESIA: Local with sedation. COMPLICATIONS: None. ESTIMATED BLOOD LOSS: Two to 3 mL. OPERATIVE REPORT: Patient brought to the operating room and placed on the operating room table. Vital signs were monitored by Anesthesia. Lid crease was marked overlying the dome of this lesion for lid crease incision. A timeout was performed a 50:50 mixture of 2% Xylocaine with 1:100,000 epinephrine and 0.5% Marcaine was injected overlying the lesion for a total of 1 to 2 mL. Hemostasis was allowed to occur. Patient was prepped and draped in usual sterile fashion exposing both eyes. The lid crease was now incised with a 15-blade through skin, subcutaneous and muscle tissue and the dome of the lesion was then identified and the lesion was dissected out from 270-360 degrees superiorly, but when the tarsus was attained the lesion became open and it was filled with granulomatous type material, not keratinized material. The lesion was excised in toto and then the base of the lesion at the tarsus was excised as a circular lesion as well and debrided with a curette and hemostasis was achieved with [place] needle. Antibiotic irrigation was used throughout the case and the skin was then closed with running 6-0 plain suture. Erythromycin ointment was placed in the eye. A double patch was then taped over the eye and the patient was taken to the recovery room in stable condition. ARIES SAAB M.D. BEENA/[id number]
[2019-12-14 14:25] VITALS: TEMP 98.2
[2019-12-14 15:47] VITALS: BP 122/76; PULSE 64
--- NOTE | 2019-12-17 12:59 | PATH ---
Surgical Pathology Report Patient Name: JEVON VÁSQUEZ [facility]. Rec. #: [id number] /Age/Gender: 1965 (Age: 54) / M Account: [id number] Location: [facility] Taken: 12/14/2019 Received: 12/14/2019 Reported: 12/17/2019 Physicians: Kings Mcclendon Specimen(s) Received TUMOR RIGHT UPPER EYELID Clinical History Tumor right upper eyelid Final Diagnosis RIGHT UPPER EYELID, TUMOR, EXCISION: CHALAZION. (SEE COMMENT) Comment: The lesion is comprised of lipogranulomas in a background of dense acute and chronic inflammatory infiltrate. These findings are consistent with chalazion. Electronically Signed Sindi Victoria M.D. Gross Description Received in formalin labeled "tumor right upper eyelid," is a 0.8 x 0.5 x 0.3 cm zuluaga-brown soft tissue nodule. The specimen is inked blue and trisected. The specimen is entirely submitted in one cassette. /12/15/2019 [place]/12/15/2019
== END 2019-12-14 15:48 | disposition home or self-care (01) ==
LOC: FASU 07:51
PROVIDERS: ATTEND Ophthalmology
PROC: 0JB10ZZ Excision of Face Subcutaneous Tissue and Fascia, Open Approach (ICD-10-PCS; principal; 2019-12-14 12:47)
DX: D23.111 Other benign neoplasm of skin of right upper eyelid, including canthus (principal)
CPT/HCPCS: 88305-TC; 94760